=== PATIENT | female | born 1970 | race Hispanic/Latino ===

== ENCOUNTER 2023-11-21 06:35 | Day surgery (SDC) | payer OTHER ==
[~2023-11-21] VITALS: Ht 157.5 cm; Wt 73.0 kg
[2023-11-21] VITALS (11 sets, daily range): BP systolic 101–129; BP diastolic 36–61; PULSE 58–85; RESP 11–15
[~2023-11-21 06:35] MED LIST: 0.9%NACL 1000ML 1,000 ML IV ONE; ATOR10 PO; FAMO40TA7 PO; LOSA25TA41 PO; METF-444 PO; METO-408 PO; PANT40GR PO
[2023-11-21] MEDS ORDERED: PROPOFOL 10 MG/ML 20ML VIAL IV ONE ×2 (10:30→10:41)
[2023-11-21] MEDS ORDERED: LIDOCAINE PF 100MG/5ML (2%) SYRINGE 5ML ONE (10:30)
== END 2023-11-21 12:05 | disposition home or self-care (01) ==
LOC: ENDO 06:35 → DAH 06:35 → ENDO 12:05
PROVIDERS: ATTEND Surgery
DX: R10.13 Epigastric pain (principal); K31.89 Other diseases of stomach and duodenum; K44.9 Diaphragmatic hernia without obstruction or gangrene; K22.89 Other specified disease of esophagus; I10 Essential (primary) hypertension; E66.9 Obesity, unspecified; E50.9 Vitamin A deficiency, unspecified; E11.43 Type 2 diabetes mellitus with diabetic autonomic (poly)neuropathy; K31.84 Gastroparesis; Z86.19 Personal history of other infectious and parasitic diseases; Z79.84 Long term (current) use of oral hypoglycemic drugs; Z79.01 Long term (current) use of anticoagulants; Z68.29 Body mass index [BMI] 29.0-29.9, adult; Z98.0 Intestinal bypass and anastomosis status; Z90.49 Acquired absence of other specified parts of digestive tract; Z98.890 Other specified postprocedural states; Z79.899 Other long term (current) drug therapy
CPT/HCPCS: 81025; 82948 ×2; 43239; J7030 ×2; J2001; J2704 ×2; A4620; A4215 ×2; A4223; A7002; A4222; A4221; A4663; A4606; J3490

== ENCOUNTER → 2024-09-09 | Outpatient (CLI) | payer OTHER ==
[~2024-09-09] MED LIST changes: -0.9%NACL 1000ML 1,000 ML IV ONE
--- NOTE | 2024-09-09 10:53 | HMCIMG ---
UPPER GI TRACT, WO KUB REASON: Diaphragmatic hernia without obstruction or gangrene. COMPARISON: None TECHNIQUE: Single contrast upper GI series was performed. FINDINGS: There is no obstruction to the antegrade passage of barium from mouth through jejunum. A normal esophageal stripping wave is seen. There is a small hiatal hernia. There is gastroesophageal reflux seen to the level of mid thoracic esophagus. 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 Duodenal bulb and duodenal sweep are unremarkable. IMPRESSION: No obstruction or leakage is seen. There is small hiatal hernia. Gastroesophageal reflux to the level of mid thoracic esophagus.
== END | disposition home or self-care (01) ==
LOC: RAH 08:52
PROVIDERS: ATTEND Surgery
DX: K21.9 Gastro-esophageal reflux disease without esophagitis (principal); K44.9 Diaphragmatic hernia without obstruction or gangrene
CPT/HCPCS: 74240

== ENCOUNTER 2025-02-27 06:51 | Day surgery (SDC) | payer OTHER ==
[~2025-02-27] VITALS: Ht 162.6 cm; Wt 75.7 kg
[2025-02-27] VITALS (10 sets, daily range): BP systolic 95–114; BP diastolic 47–55; PULSE 60–69; RESP 14–20; TEMP 97.7–98.1
[~2025-02-27 06:51] MED LIST changes: +APIX5TAB PO; -ATOR10 PO; +ATOR40TA69 PO
[2025-02-27] MEDS: 0.9%NACL 1000ML 1,000 ML IV ONE (07:17)
[2025-02-27] MEDS ORDERED: LIDOCAINE PF 100MG/5ML (2%) SYRINGE 5ML ONE (07:22)
--- NOTE | 2025-02-27 10:57 | NUR ---
Full and complete discharge instructions given to Patient and Family both verbally and in writing. Explained GI procedure precautions and follow up. All questions answered. PIV removed with catheter tip intact. Home with Family W/C to POV.
== END 2025-02-27 10:57 | disposition home or self-care (01) ==
LOC: ENDO 06:51 → DAH 06:51 → ENDO 10:57
PROVIDERS: ATTEND Surgery
DX: K30 Functional dyspepsia (principal); K44.9 Diaphragmatic hernia without obstruction or gangrene; K21.9 Gastro-esophageal reflux disease without esophagitis; Z98.84 Bariatric surgery status; K31.89 Other diseases of stomach and duodenum; K22.89 Other specified disease of esophagus; K31.84 Gastroparesis; E50.9 Vitamin A deficiency, unspecified; K91.2 Postsurgical malabsorption, not elsewhere classified; E11.9 Type 2 diabetes mellitus without complications; I10 Essential (primary) hypertension; E66.9 Obesity, unspecified; Z68.30 Body mass index [BMI] 30.0-30.9, adult; Z90.49 Acquired absence of other specified parts of digestive tract; Z79.84 Long term (current) use of oral hypoglycemic drugs; Z79.01 Long term (current) use of anticoagulants; Z79.899 Other long term (current) drug therapy
CPT/HCPCS: 43239; 82948 ×2; J7030; J2003; J2704; A4620; A4215 ×2; A4223; A4222; A4221; A4663; A4606; J3490